=== PATIENT | female | born 1980 | race Caucasian/White ===

== ENCOUNTER 2016-07-02 16:15 | Emergency (ER) | payer OTHER ==
[~2016-07-02] VITALS: Ht 154.9 cm; Wt 49.8 kg
[~2016-07-02 16:15] MED LIST: ADVIL200 M1 PO; ANAPROX DS550 M1 PO; AUGMENTIN875 MG PO; AZITHROMYCIN500 M1 PO; BACTRIM,SEPT1 TABLET PO; CEFTIN500 MG PO; DUONEB 2.5-0.5 M3 ML IH; EXCEDRIN EXT1 TABLET PO; EXCEDRIN EXTRA1 EACH PO; HYDROCODON-ACE1 EAC7 PO; INDOCIN25 MG PO; KEFLEX500 MG PO; LIDOCAINE20 MG/1 M5 PO; LORTAB 5-325 M1 EACH PO; METHADONE10 MG PO; METHADOSE10 MG/1 ML PO; MOTRIN IB200 MG PO; MOTRIN600 MG PO; NICOTINE PATCH1 EAC2 TD; NOHOMEMEDS; ORTHO TRI-CYCL1 EACH PO; PANTOPRAZOLE SO40 MG PO; PEN-VEE K,VEET500 MG PO; PERCOCET 5/31 TABLET PO; ROBITUSSIN AC,T10 ML PO; ULTRACET1 TABLET PO; ZITHROMAX Z-PA250 MG PO
[2016-07-02] MEDS ORDERED: VENTOLIN HFA18 GM IH (16:47)
[2016-07-02] MEDS ORDERED: PROVENTIL,2.5 MG/3 M IH (16:47)
[2016-07-02] MEDS ORDERED: PREDNISONE20 MG PO (16:47)
[2016-07-02] MEDS ORDERED: ZITHROMAX Z-PA250 MG PO (16:47)
[2016-07-02 17:34] VITALS: BP 101/63
== END 2016-07-02 17:35 | disposition home or self-care (01) ==
LOC: EME 16:15
DX: J32.9 Chronic sinusitis, unspecified (principal); J20.9 Acute bronchitis, unspecified; J45.909 Unspecified asthma, uncomplicated; F17.200 Nicotine dependence, unspecified, uncomplicated
CPT/HCPCS: 99281; 99284; J7512

== ENCOUNTER 2017-10-12 19:42 | Emergency (ER) | payer OTHER ==
[~2017-10-12] VITALS: Ht 157.5 cm; Wt 56.8 kg
[~2017-10-12 19:42] MED LIST changes: +PREDNISONE20 MG PO; +PROVENTIL,2.5 MG/3 M IH; +VENTOLIN HFA18 GM IH
[2017-10-12 20:27] LABS: MCH 27.1 PG (29.0-34.0); MCHC 34.1 G/DL (30.0-36.0); MCV 79.3 FL (83-99); PLATELET COUNT 184 K/uL (156-360); RBC DIS.WIDTH-CV 15.9 % (11.8-14.6); RBC DIS.WIDTH-SD 45.7 % (39-53); RED BLOOD COUNT 5.17 M/uL (3.80-5.20); WHITE BLOOD COUNT 15.6 K/uL (4.1-10.2)
[2017-10-12 20:32] LABS: ALBUMIN 3.8 g/dL (3.2-4.8); CHLORIDE 106 mEq/L (99-109); POTASSIUM 4.8 mEq/L (3.7-5.4); SODIUM 134 mEq/L (136-147)
[2017-10-12 20:35] LABS: GLUCOSE 172 mg/dL (70-99); TOTAL PROTEIN 7.9 g/dL (6.4-8.3)
[2017-10-12 20:37] LABS: TOTAL BILIRUBIN 0.5 mg/dL (0.0-1.0)
[2017-10-12 20:38] LABS: ALKALINE PHOSPHATASE 115 IU/L (3-129); CREATININE 0.9 mg/dL (0.6-1.3); GFR ESTIMATE (CALCULATED) > 59 mL/min/
[2017-10-12 20:39] LABS: UREA NITROGEN (BUN) 12 mg/dL (9-23)
[2017-10-12 20:40] LABS: AST (GOT) 40 IU/L (2-34)
[2017-10-12 20:41] LABS: ALT (GPT) 34 IU/L (3-49)
[2017-10-12 20:48] LABS: QUANTITATIVE HCG < 4.0 MIU/ML
[2017-10-12 22:30] LABS: APPEARANCE CLEAR ((CLEAR)); BILIRUBIN NEGATIVE; BLOOD NEGATIVE; COLOR YELLOW ((YELLOW)); GLUCOSE (STRIP) NEGATIVE; KETONES NEGATIVE; LEUKOCYTES NEGATIVE; NITRITE NEGATIVE; PROTEIN (STRIP) NEGATIVE; SPECIFIC GRAVITY 1.019 (1.000-1.030); UCUL ADDED? NO; UROBILINOGEN 0.2 MG/DL (0.2-1.0)
[2017-10-12] MEDS ORDERED: MOTRIN600 MG PO (22:41)
[2017-10-12] MEDS ORDERED: MEDROL DOSEPAK4 MG PO (22:41)
[2017-10-12] MEDS ORDERED: LIDODERM 5% P1 PATCH TD (22:41)
[2017-10-12] MEDS ORDERED: BACLOFEN10 MG PO (22:41)
[2017-10-12 22:59] VITALS: BP 133/96
== END 2017-10-12 23:00 | disposition home or self-care (01) ==
LOC: EME 19:42
DX: S39.011A Strain of muscle, fascia and tendon of abdomen, initial encounter (principal); M16.11 Unilateral primary osteoarthritis, right hip; Y93.01 Activity, walking, marching and hiking; J45.909 Unspecified asthma, uncomplicated; J43.9 Emphysema, unspecified; Z86.69 Personal history of other diseases of the nervous system and sense organs; F17.200 Nicotine dependence, unspecified, uncomplicated
CPT/HCPCS: 72170; 80053; 81003; 84702; 85027; 99281; 99284; J1885

== ENCOUNTER 2017-10-14 13:56 | Emergency (ER) | payer OTHER ==
[~2017-10-14] VITALS: Ht 157.5 cm; Wt 57.0 kg
[~2017-10-14 13:56] MED LIST changes: +BACLOFEN10 MG PO; +LIDODERM 5% P1 PATCH TD; +MEDROL DOSEPAK4 MG PO
[2017-10-14] MEDS ORDERED: PERCOCET 5/31 TABLET PO (15:11)
[2017-10-14 15:31] VITALS: BP 156/83
== END 2017-10-14 15:35 | disposition home or self-care (01) ==
LOC: EME 13:56
DX: M54.32 Sciatica, left side (principal); Z88.8 Allergy status to other drugs, medicaments and biological substances
CPT/HCPCS: 99281; 99284; J1885

== ENCOUNTER 2017-10-15 15:09 | Inpatient (IN) | payer OTHER ==
[~2017-10-15] VITALS: Ht 157.5 cm; Wt 70.3 kg
[2017-10-15 16:44] LABS: HEMATOCRIT 38.6 % (36.0-46.0); HEMOGLOBIN 13.6 G/DL (11.9-15.5); MCH 27.2 PG (29.0-34.0); MCHC 35.2 G/DL (30.0-36.0); MCV 77.2 FL (83-99); PLATELET COUNT 203 K/uL (156-360); RBC DIS.WIDTH-CV 16.7 % (11.8-14.6); RBC DIS.WIDTH-SD 46.9 % (39-53); WHITE BLOOD COUNT 6.3 K/uL (4.1-10.2)
[2017-10-15 16:52] LABS: APPEARANCE TURBID ((CLEAR)); BILIRUBIN SMALL; BLOOD LARGE; COLOR AMBER ((YELLOW)); GLUCOSE (STRIP) 50; KETONES NEGATIVE; LEUKOCYTES NEGATIVE; NITRITE NEGATIVE; PROTEIN (STRIP) >=500; SPECIFIC GRAVITY 1.026 (1.000-1.030); UROBILINOGEN 0.2 MG/DL (0.2-1.0)
[2017-10-15 16:53] LABS: CHLORIDE 101 mEq/L (99-109); SODIUM 134 mEq/L (136-147)
[2017-10-15 16:57] LABS: GLUCOSE 114 mg/dL (70-99); SERUM ETHYL ALCOHOL < 10 mg/dL
[2017-10-15 16:58] LABS: GFR ESTIMATE (CALCULATED) 19 mL/min/
[2017-10-15 17:00] LABS: UREA NITROGEN (BUN) 40 mg/dL (9-23)
[2017-10-15 17:01] LABS: SALICYLATE < 5.0 MG/DL (15-30)
[2017-10-15 17:02] LABS: ACETAMINOPHEN (TYLENOL) < 10 mcg/mL (10-30)
[2017-10-15 17:04] LABS: AMPHETAMINE PRESUMPTIVE POSITIVE (500 ng/mL); BARBITURATES NEGATIVE (200 ng/mL); BENZODIAZEPINES NEGATIVE (150 ng/mL); BUPRENORPHINE PRESUMPTIVE POSITIVE (10 ng/mL); COCAINE NEGATIVE (150 ng/mL); METHADONE NEGATIVE (200 ng/mL); METHAMPHETAMINE PRESUMPTIVE POSITIVE (500 ng/mL); OPIATES (MORPHINE) NEGATIVE (100 ng/mL); OXYCODONE PRESUMPTIVE POSITIVE (100 ng/mL); PHENCYCLIDINE NEGATIVE (25 ng/mL); PROPOXYPHENE NEGATIVE (300 ng/mL); THC CANNABINOIDS NEGATIVE (50 ng/mL); TRICYCLIC ANTIDEPRESSANTS NEGATIVE (300 ng/mL)
[2017-10-15 17:06] LABS: TROP-I INTERPRETATION NEGATIVE; TROPONIN-I 0.04 ng/mL (0.0-0.30)
[2017-10-15 17:07] LABS: QUANTITATIVE HCG < 4.0 MIU/ML
[2017-10-15 17:39] LABS: RED BLOOD CELLS NONE SEEN /HPF (0-5)
[2017-10-15 17:40] LABS: WHITE BLOOD CELLS RARE /HPF (0-5)
[2017-10-15 17:41] LABS: BACTERIA RARE /HPF; EPITHELIAL CELLS 1+ /HPF; MUCUS NONE SEEN /LPF; UCUL ADDED? NO
[2017-10-15 17:43] LABS: COARSE GRANULAR CASTS RARE /LPF; FINE GRANULAR CASTS RARE /LPF; HYALINE CASTS RARE /LPF
[2017-10-15 17:51] LABS: COMMENTS - BLOOD GASES C+; DEVICE NC; O2 FLOW 1 L/MIN; SITE RB; TOTAL RESP RATE 22 resp/min
[2017-10-15 17:52] LABS: PCO2 25 mm Hg (35-45); PO2 84 mm Hg (80-100); pH 7.33 (7.35-7.45)
[2017-10-15 17:53] LABS: BASE EXCESS -11.1 mEq/L (-3 to +3); BICARBONATE 13.2 mEq/L (22-26); CARBOXY HGB 1.4 % (0-5); METHEMOGLOBIN 1.2 % (0-1.5)
[2017-10-15 17:58] LABS: CREATINE KINASE 1156 IU/L (1-294)
[2017-10-15 21:15] VITALS: BP 122/85
[2017-10-15 22:27] LABS: CARBOXY HGB 1.6 % (0-5); PCO2 45 mm Hg (35-45); PO2 92 mm Hg (80-100)
[2017-10-15 22:28] LABS: BASE EXCESS -15.3 mEq/L (-3 to +3); COMMENTS - BLOOD GASES C+A+; DEVICE VENTILATOR; FI02 40 %; MECHANICAL RATE 16 resp/min; MODE AC; PEEP 5 CM/H20; TIDAL VOLUME 450 ML; TOTAL RESP RATE 16 resp/min
[2017-10-15 22:30] VITALS: BP 122/85
[2017-10-15 22:46] LABS: PTT 38.1 SEC (25-37)
[2017-10-15 22:50] LABS: MAGNESIUM 1.7 mg/dl (1.3-2.7); PHOSPHORUS 5.6 mg/dL (2.5-4.9)
[2017-10-15 23:19] LABS: INTER. NORMALIZED RATIO 1.3
[2017-10-15 23:31] LABS: TRIGLYCERIDES 274 MG/DL (Normal: <150)
[2017-10-15 23:44] LABS: BASE EXCESS -8.1 mEq/L (-3 to +3); BICARBONATE 16.9 mEq/L (22-26); CARBOXY HGB 1.3 % (0-5); PCO2 32 mm Hg (35-45); PO2 103 mm Hg (80-100); pH 7.33 (7.35-7.45)
[2017-10-15 23:45] LABS: COMMENTS - BLOOD GASES C+A+; DEVICE VENTILATOR; FI02 40 %; MECHANICAL RATE 20 resp/min; MODE AC; PEEP 5 CM/H20; TIDAL VOLUME 450 ML; TOTAL RESP RATE 26 resp/min
[2017-10-16] VITALS (8 sets, daily range): BP systolic 94–161; BP diastolic 67–99
[2017-10-16 05:22] LABS: BASE EXCESS -7.3 mEq/L (-3 to +3); METHEMOGLOBIN 1.2 % (0-1.5); PCO2 35 mm Hg (35-45); PO2 102 mm Hg (80-100); pH 7.32 (7.35-7.45)
[2017-10-16 05:23] LABS: COMMENTS - BLOOD GASES C+A+; DEVICE VENTILATOR; FI02 40 %; MECHANICAL RATE 20 resp/min; MODE AC; PEEP 5 CM/H20; TIDAL VOLUME 450 ML; TOTAL RESP RATE 21 resp/min
[2017-10-16 06:11] LABS: HEMATOCRIT 33.4 % (36.0-46.0); MCH 26.2 PG (29.0-34.0); MCHC 33.2 G/DL (30.0-36.0); RBC DIS.WIDTH-SD 48.8 % (39-53); RED BLOOD COUNT 4.23 M/uL (3.80-5.20); WHITE BLOOD COUNT 2.4 K/uL (4.1-10.2)
[2017-10-16 06:18] LABS: HEMOGLOBIN 11.1 G/DL (11.9-15.5)
[2017-10-16 06:44] LABS: CHLORIDE 109 MEQ/L (99-109); CREATININE 3.1 MG/DL (0.6-1.3); GFR ESTIMATE (CALCULATED) 18 mL/min/; GLUCOSE 134 mg/dL (70-99); MAGNESIUM 1.6 mg/dl (1.3-2.7); PHOSPHORUS 4.2 mg/dL (2.5-4.9); POTASSIUM 3.7 MEQ/L (3.7-5.4); SODIUM 139 MEQ/L (136-147); UREA NITROGEN (BUN) 41 mg/dL (9-23)
[2017-10-16 07:40] LABS: PLAT.SUFFICIENCY DECREASED
[2017-10-16 07:42] LABS: PLATELET COUNT 106 K/uL (156-360)
[2017-10-16 07:47] LABS: CREATINE KINASE 1574 IU/L (1-294)
[2017-10-17] VITALS (11 sets, daily range): BP systolic 108–152; BP diastolic 69–99
[2017-10-17 06:20] LABS: CREATINE KINASE 1057 IU/L (1-294)
[2017-10-17 07:31] LABS: ALBUMIN 1.6 G/DL (3.2-4.8); ALKALINE PHOSPHATASE 63 IU/L (3-129); ALT (GPT) 36 IU/L (3-49); AST (GOT) 69 IU/L (2-34); CHLORIDE 104 MEQ/L (99-109); CREATININE 3.6 MG/DL (0.6-1.3); GFR ESTIMATE (CALCULATED) 15 mL/min/; GLUCOSE 101 mg/dL (70-99); MAGNESIUM 1.5 mg/dl (1.3-2.7); POTASSIUM 3.7 MEQ/L (3.7-5.4); SODIUM 139 MEQ/L (136-147); TOTAL BILIRUBIN 0.8 MG/DL (0.0-1.0); UREA NITROGEN (BUN) 50 mg/dL (9-23)
[2017-10-17 11:49] LABS: HEMATOCRIT 28.7 % (36.0-46.0); HEMOGLOBIN 9.8 G/DL (11.9-15.5); MCH 26.7 PG (29.0-34.0); MCHC 34.1 G/DL (30.0-36.0); MCV 78.2 FL (83-99); RBC DIS.WIDTH-CV 17.2 % (11.8-14.6); RBC DIS.WIDTH-SD 49.4 % (39-53); RED BLOOD COUNT 3.67 M/uL (3.80-5.20); WHITE BLOOD COUNT 6.2 K/uL (4.1-10.2)
[2017-10-17 12:21] LABS: ABS NEUTROPHIL COUNT 5.7; ANISOCYTOSIS NONE SEEN; BAND NEUTROPHILS 16.4 % (0-8.0); BURR CELLS 1+; EOSINOPHIL ABS CT 0; LYMPHOCYTES 6.9 % (15.0-45.0); MONOCYTES 0.8 % (0-9.0); NUCLEATED RBC'S 0.9; PLAT.SUFFICIENCY DECREASED; PLATELET COUNT 54 K/uL (156-360); POIKILOCYTOSIS 1+; SEG.NEUTROPHILS 75.9 % (46.0-76.0); SMUDGE CELLS 4.3
[2017-10-17 21:50] LABS: DEVICE VENT; FI02 60 %; MECHANICAL RATE 12 resp/min; MODE ACVC+; PCO2 35 mm Hg (35-45); PEEP 5 CM/H20; PO2 65 mm Hg (80-100); SITE ALINE; TIDAL VOLUME 450 ML; TOTAL RESP RATE 28 resp/min; pH 7.48 (7.35-7.45)
[2017-10-17 21:51] LABS: BASE EXCESS 2.7 mEq/L (-3 to +3); BICARBONATE 26.1 mEq/L (22-26); CARBOXY HGB 0.9 % (0-5); METHEMOGLOBIN 1.1 % (0-1.5)
[2017-10-18] VITALS (21 sets, daily range): BP systolic 112–146; BP diastolic 63–98
[2017-10-18 06:41] LABS: CREATINE KINASE 322 IU/L (1-294); MAGNESIUM 1.6 mg/dl (1.3-2.7)
[2017-10-18 06:45] LABS: PHOSPHORUS 2.2 mg/dL (2.5-4.9)
[2017-10-18 07:32] LABS: HEMOGLOBIN 9.5 G/DL (11.9-15.5); MCH 26.5 PG (29.0-34.0); MCHC 33.9 G/DL (30.0-36.0); MCV 78.2 FL (83-99); RBC DIS.WIDTH-CV 17.2 % (11.8-14.6); RBC DIS.WIDTH-SD 49.4 % (39-53); RED BLOOD COUNT 3.58 M/uL (3.80-5.20)
[2017-10-18 07:47] LABS: ABS NEUTROPHIL COUNT 6.7; ANISOCYTOSIS NONE SEEN; ATYPICAL LYMPHOCYTE 0.9 %; BAND NEUTROPHILS 1.8 % (0-8.0); EOSINOPHIL ABS CT 0.1; EOSINOPHILS 0.9 % (0-5.0); LYMPHOCYTES 10.6 % (15.0-45.0); MONOCYTES 3.5 % (0-9.0); PLAT.SUFFICIENCY VERY DECREASED; SEG.NEUTROPHILS 82.3 % (46.0-76.0)
[2017-10-18 07:48] LABS: PLATELET COUNT 33 K/uL (156-360)
[2017-10-18 09:02] LABS: CHLORIDE 99 MEQ/L (99-109); CREATININE 3.6 MG/DL (0.6-1.3); GFR ESTIMATE (CALCULATED) 15 mL/min/; GLUCOSE 91 mg/dL (70-99); POTASSIUM 3.2 MEQ/L (3.7-5.4); SODIUM 142 MEQ/L (136-147); UREA NITROGEN (BUN) 54 mg/dL (9-23)
[2017-10-18 19:56] LABS: ALBUMIN 1.7 g/dL (3.2-4.8)
[2017-10-18 20:02] LABS: ALKALINE PHOSPHATASE 88 IU/L (3-129)
[2017-10-18 20:04] LABS: AST (GOT) 47 IU/L (2-34); DIRECT BILIRUBIN 0.8 mg/dL (0.0-0.3)
[2017-10-18 20:05] LABS: ALT (GPT) 37 IU/L (3-49); LIPASE 9 U/L (1.0-51.0)
[2017-10-18 20:06] LABS: TOTAL PROTEIN 4.4 g/dL (6.4-8.3)
[2017-10-19] VITALS (25 sets, daily range): BP systolic 104–140; BP diastolic 56–85
[2017-10-19 06:08] LABS: CHLORIDE 101 MEQ/L (99-109); CREATININE 3.9 MG/DL (0.6-1.3); GFR ESTIMATE (CALCULATED) 14 mL/min/; GLUCOSE 104 mg/dL (70-99); POTASSIUM 3.2 MEQ/L (3.7-5.4); SODIUM 143 MEQ/L (136-147); UREA NITROGEN (BUN) 66 mg/dL (9-23)
[2017-10-19 06:15] LABS: MAGNESIUM 2.8 mg/dl (1.3-2.7); PHOSPHORUS 3.8 mg/dL (2.5-4.9)
[2017-10-19 11:52] LABS: INTER. NORMALIZED RATIO 1.2
[2017-10-19 11:55] LABS: PTT 29.6 SEC (25-37)
[2017-10-19 12:23] LABS: HIGH-SENS C-REACTIVE PROTEIN > 8.00 MG/DL (0.02-0.20)
[2017-10-19 12:28] LABS: D-DIMER LATEX POSITIVE
[2017-10-19 12:43] LABS: FIBRINOGEN 707 mg/dL (150-450)
[2017-10-19 12:46] LABS: SCHISTOCYTES NONE SEEN
[2017-10-19 17:46] LABS: DEVICE VENT; FI02 100 %; MECHANICAL RATE 12 resp/min; MODE AC; PCO2 46 mm Hg (35-45); PEEP 8 CM/H20; SITE ALINE; TIDAL VOLUME 450 ML; TOTAL RESP RATE 21 resp/min; pH 7.45 (7.35-7.45)
[2017-10-19 17:47] LABS: BASE EXCESS 7.2 mEq/L (-3 to +3); CARBOXY HGB 1.3 % (0-5); COMMENTS - BLOOD GASES C+; METHEMOGLOBIN 0.8 % (0-1.5); O2 SATURATION (CALCULATED) 87.3 % (95-99); PO2 47 mm Hg (80-100)
[2017-10-20] VITALS (18 sets, daily range): BP systolic 98–133; BP diastolic 58–87
[2017-10-20 05:47] LABS: HEMATOCRIT 23.6 % (36.0-46.0); HEMOGLOBIN 7.8 G/DL (11.9-15.5); MCHC 33.1 G/DL (30.0-36.0); MCV 78.7 FL (83-99); RBC DIS.WIDTH-CV 17.2 % (11.8-14.6); RBC DIS.WIDTH-SD 50.2 % (39-53); WHITE BLOOD COUNT 8.8 K/uL (4.1-10.2)
[2017-10-20 06:08] LABS: MAGNESIUM 2.6 mg/dl (1.3-2.7); PHOSPHORUS 4.1 mg/dL (2.5-4.9)
[2017-10-20 06:14] LABS: ALBUMIN 3.4 G/DL (3.2-4.8); ALKALINE PHOSPHATASE 61 IU/L (3-129); ALT (GPT) 17 IU/L (3-49); CHLORIDE 101 MEQ/L (99-109); CREATININE 3.9 MG/DL (0.6-1.3); GFR ESTIMATE (CALCULATED) 14 mL/min/; GLUCOSE 127 mg/dL (70-99); POTASSIUM 3.4 MEQ/L (3.7-5.4); SODIUM 142 MEQ/L (136-147); UREA NITROGEN (BUN) 81 mg/dL (9-23)
[2017-10-20 06:15] LABS: AST (GOT) 23 IU/L (2-34); TOTAL BILIRUBIN 1.4 MG/DL (0.0-1.0); TOTAL PROTEIN 5.2 G/DL (6.4-8.3)
[2017-10-20 06:32] LABS: ABS NEUTROPHIL COUNT 7.7; BAND NEUTROPHILS 7.9 % (0-8.0); EOSINOPHIL ABS CT 0; IMM.PLATELET FRACTION 8.9 (1-7); LYMPHOCYTES 7.9 % (15.0-45.0); MONOCYTES 4.4 % (0-9.0); PLAT.SUFFICIENCY DECREASED; PLATELET COUNT 38 K/uL (156-360); SEG.NEUTROPHILS 79.8 % (46.0-76.0)
[2017-10-20 10:37] LABS: TRIGLYCERIDES 218 MG/DL (Normal: <150)
[2017-10-20 21:41] LABS: CREATININE 3.7 MG/DL (0.6-1.3); GFR ESTIMATE (CALCULATED) 15 mL/min/; GLUCOSE 131 mg/dL (70-99); UREA NITROGEN (BUN) 92 mg/dL (9-23)
[2017-10-20 21:42] LABS: CHLORIDE 102 MEQ/L (99-109); POTASSIUM 4.4 MEQ/L (3.7-5.4); SODIUM 142 MEQ/L (136-147)
[2017-10-21] VITALS (27 sets, daily range): BP systolic 69–116; BP diastolic 46–70
[2017-10-21 06:03] LABS: ALBUMIN 2.6 G/DL (3.2-4.8); ALKALINE PHOSPHATASE 75 IU/L (3-129); ALT (GPT) 15 IU/L (3-49); AST (GOT) 22 IU/L (2-34); CHLORIDE 100 MEQ/L (99-109); CREATININE 3.9 MG/DL (0.6-1.3); GFR ESTIMATE (CALCULATED) 14 mL/min/; GLUCOSE 141 mg/dL (70-99); MAGNESIUM 2.4 mg/dl (1.3-2.7); POTASSIUM 4.6 MEQ/L (3.7-5.4); SODIUM 142 MEQ/L (136-147); TOTAL PROTEIN 5.3 G/DL (6.4-8.3); UREA NITROGEN (BUN) 95 mg/dL (9-23)
[2017-10-21 06:04] LABS: PHOSPHORUS 5.6 mg/dL (2.5-4.9); TOTAL BILIRUBIN 0.9 MG/DL (0.0-1.0)
[2017-10-21 06:06] LABS: HEMATOCRIT 23.2 % (36.0-46.0); HEMOGLOBIN 7.7 G/DL (11.9-15.5); MCH 26.5 PG (29.0-34.0); MCHC 33.2 G/DL (30.0-36.0); MCV 79.7 FL (83-99); RBC DIS.WIDTH-CV 17.9 % (11.8-14.6); RBC DIS.WIDTH-SD 52.4 % (39-53); RED BLOOD COUNT 2.91 M/uL (3.80-5.20); WHITE BLOOD COUNT 12.5 K/uL (4.1-10.2)
[2017-10-21 06:12] LABS: ANISOCYTOSIS 1+; BASOPHIL (%) 0.2 % (0-1); EOSINOPHIL (%) 0.1 % (0-5); IMMATURE GRANULOCYTE (%) 1.8 % (0.0-0.7); LYMPHOCYTE (%) 9.7 % (15-42); LYMPHOCYTE COUNT 1.2 K/uL (1.0-2.8); MICROCYTOSIS 1+; MONOCYTE (%) 4.7 % (3-12); MONOCYTE COUNT 0.6 K/uL (0-0.8); NEUTROPHIL (%) 83.5 % (45-76); NEUTROPHIL COUNT 10.5 K/uL (1.8-6.4); PLAT.SUFFICIENCY DECREASED
[2017-10-21 06:21] LABS: PLATELET COUNT 58 K/uL (156-360)
[2017-10-21 07:32] LABS: COMMENTS - BLOOD GASES NAC+; SITE ALINE
[2017-10-21 07:33] LABS: DEVICE 840; FI02 100 %; MECHANICAL RATE 28 resp/min; MODE PCV; PCO2 57 mm Hg (35-45); PEEP 15 CM/H20; PO2 88 mm Hg (80-100); PRESSURE CONTROL VENTILATION 22 CM H20; TOTAL RESP RATE 28 resp/min; pH 7.31 (7.35-7.45)
[2017-10-21 07:34] LABS: O2 SATURATION (CALCULATED) 97.4 % (95-99)
[2017-10-21 07:35] LABS: BASE EXCESS 2 mEq/L (-3 to +3); BICARBONATE 28.7 mEq/L (22-26); CARBOXY HGB 1.2 % (0-5); METHEMOGLOBIN 1.2 % (0-1.5)
[2017-10-21 12:28] LABS: COMMENTS - BLOOD GASES NAC+MD NOTIFIED; DEVICE 840; FI02 100 %; MODE BILEVEL; SITE ALINE
[2017-10-21 12:29] LABS: CONTINUOUS POS AIRWAY PRESSURE 10 cm H2O; INSPIRATION TIME 2.5 seconds; INSPIRATORY/EXPIRATORY RATIO 2.5:1 RATIO; MECHANICAL RATE 15 resp/min; PCO2 63 mm Hg (35-45); PEEP 37 CM/H20; PO2 101 mm Hg (80-100); TOTAL RESP RATE 15 resp/min; pH 7.26 (7.35-7.45)
[2017-10-21 12:30] LABS: BASE EXCESS 0.9 mEq/L (-3 to +3); BICARBONATE 28.3 mEq/L (22-26); CARBOXY HGB 0.8 % (0-5); METHEMOGLOBIN 1 % (0-1.5)
[2017-10-21 12:31] LABS: INTER. NORMALIZED RATIO 1.3
[2017-10-21 12:34] LABS: PTT 26.6 SEC (25-37)
[2017-10-21 12:59] LABS: ALBUMIN 2.6 G/DL (3.2-4.8); CHLORIDE 97 MEQ/L (99-109); CREATININE 3.9 MG/DL (0.6-1.3); GFR ESTIMATE (CALCULATED) 14 mL/min/; GLUCOSE 128 mg/dL (70-99); PHOSPHORUS 6.3 mg/dL (2.5-4.9); POTASSIUM 4.5 MEQ/L (3.7-5.4); SODIUM 139 MEQ/L (136-147); UREA NITROGEN (BUN) 99 mg/dL (9-23)
[2017-10-21 14:32] LABS: SITE ALINE
[2017-10-21 14:33] LABS: COMMENTS - BLOOD GASES NAC+DR NOTIFIED; DEVICE 840; FI02 100 %; INSPIRATION TIME 1 seconds; MECHANICAL RATE 30 resp/min; MODE AC; PCO2 51 mm Hg (35-45); PEEP 20 CM/H20; PO2 79 mm Hg (80-100); TIDAL VOLUME 360 ML; TOTAL RESP RATE 30 resp/min; pH 7.11 (7.35-7.45)
[2017-10-21 14:34] LABS: BASE EXCESS -12.6 mEq/L (-3 to +3); BICARBONATE 16.2 mEq/L (22-26); CARBOXY HGB 1.1 % (0-5); METHEMOGLOBIN 1.1 % (0-1.5)
[2017-10-21 14:43] LABS: Heparin Induced Plt Ab Negative (Negative)
[2017-10-21 15:41] LABS: SITE ALINE
[2017-10-21 15:42] LABS: DEVICE AMBU; FI02 10 %; pH 7.48 (7.35-7.45)
[2017-10-21 15:46] LABS: PCO2 94 mm Hg (35-45); PO2 35 mm Hg (80-100)
[2017-10-21 15:47] LABS: BICARBONATE 70 mEq/L (22-26); CARBOXY HGB 1.3 % (0-5); METHEMOGLOBIN 0.8 % (0-1.5); O2 SATURATION (CALCULATED) 70.3 % (95-99)
[2017-10-21 15:48] LABS: BASE EXCESS 42.3 mEq/L (-3 to +3)
[2017-10-21 16:06] LABS: UFH SRA Result Negative (Negative)
[2017-10-21 16:13] LABS: INTER. NORMALIZED RATIO 1.5
[2017-10-21 16:15] LABS: ALBUMIN 2.7 g/dL (3.2-4.8); CHLORIDE 98 mEq/L (99-109); HEMATOCRIT 21.3 % (36.0-46.0); HEMOGLOBIN 6.6 G/DL (11.9-15.5); MCH 26.9 PG (29.0-34.0); MCV 86.9 FL (83-99); NRBC (%) 1.2 /100 WBC (0-0); RBC DIS.WIDTH-CV 18.9 % (11.8-14.6); RBC DIS.WIDTH-SD 59.6 % (39-53); RED BLOOD COUNT 2.45 M/uL (3.80-5.20); WHITE BLOOD COUNT 23.4 K/uL (4.1-10.2)
[2017-10-21 16:16] LABS: PTT 42.3 SEC (25-37)
[2017-10-21 16:20] LABS: TOTAL BILIRUBIN 1.2 mg/dL (0.0-1.0)
[2017-10-21 16:21] LABS: CREATININE 4.5 mg/dL (0.6-1.3); GFR ESTIMATE (CALCULATED) 12 mL/min/
[2017-10-21 16:24] LABS: ALT (GPT) 51 IU/L (3-49); CREATINE KINASE 52 IU/L (1-294); TOTAL CK 52 IU/L (1-294)
[2017-10-21 16:26] LABS: GLUCOSE 9 mg/dL (70-99); SODIUM 147 mEq/L (136-147)
[2017-10-21 16:27] LABS: ALKALINE PHOSPHATASE 122 IU/L (3-129); POTASSIUM 7.4 mEq/L (3.7-5.4); TOTAL PROTEIN 5.5 g/dL (6.4-8.3)
[2017-10-21 16:29] LABS: AST (GOT) 159 IU/L (2-34); UREA NITROGEN (BUN) 105 mg/dL (9-23)
[2017-10-21 16:30] LABS: SITE ALINE
[2017-10-21 16:30] LABS: TROP-I INTERPRETATION NEGATIVE; TROPONIN-I 0.17 ng/mL (0.0-0.30)
[2017-10-21 16:31] LABS: CARBOXY HGB 1.1 % (0-5); COMMENTS - BLOOD GASES C+ DR IS AWARE; DEVICE VENT; FI02 100 %; MECHANICAL RATE 34 resp/min; METHEMOGLOBIN 0.6 % (0-1.5); MODE ACVC+; PCO2 46 mm Hg (35-45); PEEP 20 CM/H20; PO2 297 mm Hg (80-100); TIDAL VOLUME 450 ML; TOTAL RESP RATE 34 resp/min; pH 7.09 (7.35-7.45)
[2017-10-21 16:31] LABS: CK-MB 0.9 ng/mL (0.0-4.9); CKMB RELATIVE INDEX 1.7 (0.0-3.9)
[2017-10-21 16:32] LABS: BASE EXCESS -14.8 mEq/L (-3 to +3)
[2017-10-21 16:52] LABS: ABS NEUTROPHIL COUNT 16.1; ANISOCYTOSIS 1+; BAND NEUTROPHILS 2.2 % (0-8.0); BASOPHILS 0.9 %; EOSINOPHIL ABS CT 0; HEMATOLOGY COMMENT 1 SN; LYMPHOCYTES 26.3 % (15.0-45.0); METAMYELOCYTES 1.3 %; MONOCYTES 2.2 % (0-9.0); MYELOCYTES 0.4 %; NUCLEATED RBC'S 3.1; PLAT.SUFFICIENCY ADEQUATE; POIKILOCYTOSIS 1+; SEG.NEUTROPHILS 66.7 % (46.0-76.0); SMUDGE CELLS 10.1
[2017-10-21 16:56] LABS: PLATELET COUNT 168 K/uL (156-360)
[2017-10-21 18:23] LABS: MCH 26.9 PG (29.0-34.0); MCHC 31.8 G/DL (30.0-36.0); MCV 84.6 FL (83-99); NRBC (%) 0.7 /100 WBC (0-0); PLATELET COUNT 137 K/uL (156-360); RBC DIS.WIDTH-CV 18.7 % (11.8-14.6); RBC DIS.WIDTH-SD 57.8 % (39-53); WHITE BLOOD COUNT 19.7 K/uL (4.1-10.2)
[2017-10-21 18:33] LABS: ALBUMIN 2.4 g/dL (3.2-4.8)
[2017-10-21 18:34] LABS: CHLORIDE 101 mEq/L (99-109); SODIUM 149 mEq/L (136-147)
[2017-10-21 18:35] LABS: MAGNESIUM 2.4 mg/dL (1.3-2.7)
[2017-10-21 18:38] LABS: GLUCOSE 56 mg/dL (70-99); POTASSIUM 4.8 mEq/L (3.7-5.4)
[2017-10-21 18:39] LABS: PHOSPHORUS 10.1 mg/dL (2.5-4.9)
[2017-10-21 18:40] LABS: CREATININE 4.2 mg/dL (0.6-1.3); GFR ESTIMATE (CALCULATED) 13 mL/min/
[2017-10-21 18:44] LABS: UREA NITROGEN (BUN) 101 mg/dL (9-23)
[2017-10-21 23:49] LABS: CARBOXY HGB 1.3 % (0-5); METHEMOGLOBIN 1.1 % (0-1.5); O2 SATURATION (CALCULATED) 95.5 % (95-99); PCO2 42 mm Hg (35-45); PO2 83 mm Hg (80-100); pH 7.05 (7.35-7.45)
[2017-10-21 23:50] LABS: BICARBONATE 11.6 mEq/L (22-26); DEVICE VENT; FI02 100 %; MECHANICAL RATE 34 resp/min; MODE ACVC+; PEEP 15 CM/H20; SITE A-LINE; TIDAL VOLUME 450 ML; TOTAL RESP RATE 37 resp/min
== END 2017-10-22 00:24 | DRG 917 ==
LOC: EME → EDBD 15:09 → EME 15:09 → 4WEST 19:55 → EDOF 19:55 → ENRESERV 19:57 → 4WEST 21:17
PROVIDERS: Emergency Medicine; Internal Medicine; Internal Medicine Critical Care Medicine; Internal Medicine Nephrology; Specialist; Surgery
PROC: 0BH18EZ Insertion of Endotracheal Airway into Trachea, Via Natural or Artificial Opening Endoscopic (ICD-10-PCS; principal; 2017-10-15)
PROC: 5A1955Z Respiratory Ventilation, Greater than 96 Consecutive Hours (ICD-10-PCS; principal; 2017-10-15)
PROC: 02HV33Z Insertion of Infusion Device into Superior Vena Cava, Percutaneous Approach (ICD-10-PCS; 2017-10-15)
PROC: 03HY32Z Insertion of Monitoring Device into Upper Artery, Percutaneous Approach (ICD-10-PCS; 2017-10-15)
PROC: 05HP33Z Insertion of Infusion Device into Right External Jugular Vein, Percutaneous Approach (ICD-10-PCS; 2017-10-15)
PROC: 30243R1 Transfusion of Nonautologous Platelets into Central Vein, Percutaneous Approach (ICD-10-PCS; 2017-10-19)
PROC: B54BZZA Ultrasonography of Right Lower Extremity Veins, Guidance (ICD-10-PCS; 2017-10-20)
PROC: 04HY32Z Insertion of Monitoring Device into Lower Artery, Percutaneous Approach (ICD-10-PCS; 2017-10-20)
PROC: 5A1D90Z Performance of Urinary Filtration, Continuous, Greater than 18 hours Per Day (ICD-10-PCS; 2017-10-20)
PROC: 30243K1 Transfusion of Nonautologous Frozen Plasma into Central Vein, Percutaneous Approach (ICD-10-PCS; 2017-10-21)
PROC: 5A12012 Performance of Cardiac Output, Single, Manual (ICD-10-PCS; 2017-10-21)
PROC: B543ZZA Ultrasonography of Right Jugular Veins, Guidance (ICD-10-PCS; 2017-10-21)
PROC: 5A2204Z Restoration of Cardiac Rhythm, Single (ICD-10-PCS; 2017-10-21)
PROC: 02HV33Z Insertion of Infusion Device into Superior Vena Cava, Percutaneous Approach (ICD-10-PCS; 2017-10-21)
PROC: 30243N1 Transfusion of Nonautologous Red Blood Cells into Central Vein, Percutaneous Approach (ICD-10-PCS; 2017-10-21)
PROC: 0W9930Z Drainage of Right Pleural Cavity with Drainage Device, Percutaneous Approach (ICD-10-PCS; 2017-10-22)
PROC: 0W9B30Z Drainage of Left Pleural Cavity with Drainage Device, Percutaneous Approach (ICD-10-PCS; 2017-10-22)
DX: T40.601A Poisoning by unspecified narcotics, accidental (unintentional), initial encounter (principal); T40.4X1A Poisoning by other synthetic narcotics, accidental (unintentional), initial encounter; T40.3X1A Poisoning by methadone, accidental (unintentional), initial encounter; T43.621A Poisoning by amphetamines, accidental (unintentional), initial encounter; G92 Toxic encephalopathy; R40.20 Unspecified coma; A41.02 Sepsis due to Methicillin resistant Staphylococcus aureus; R65.21 Severe sepsis with septic shock; J69.0 Pneumonitis due to inhalation of food and vomit; J15.212 Pneumonia due to Methicillin resistant Staphylococcus aureus; N76.2 Acute vulvitis; J80 Acute respiratory distress syndrome; N17.0 Acute kidney failure with tubular necrosis; I76 Septic arterial embolism; I26.90 Septic pulmonary embolism without acute cor pulmonale; E87.2 Acidosis; M62.82 Rhabdomyolysis; D68.9 Coagulation defect, unspecified; R40.2430 Glasgow coma scale score 3-8, unspecified time; E87.6 Hypokalemia; I49.01 Ventricular fibrillation; I46.9 Cardiac arrest, cause unspecified; D64.9 Anemia, unspecified; D69.6 Thrombocytopenia, unspecified; J93.0 Spontaneous tension pneumothorax; E87.70 Fluid overload, unspecified; E16.2 Hypoglycemia, unspecified; R68.0 Hypothermia, not associated with low environmental temperature; Z51.5 Encounter for palliative care; Z66 Do not resuscitate; J45.909 Unspecified asthma, uncomplicated; B18.2 Chronic viral hepatitis C; F17.210 Nicotine dependence, cigarettes, uncomplicated
CPT/HCPCS: 36600; 70450; 70551; 71045; 71250; 74176; 76705; 76882; 80048; 80048 91; 80053; 80069; 80076; 80202; 81003; 82330; 82550; 82550 91; 82553; 82948; 83605; 83690; 83735; 84100; 84145 90; 84478; 84484; 84702; 84999; 85025; 85025 91; 85027; 85378; 85384; 85610; 85730; 86022 90; 86141; 86850; 86900; 86901; 86920; 87040; 87070; 87077; 87086; 87147; 87186; 87205; 87641; 87801; 93005; 93306; 93308; 93312; 93320; 93325; 94002; 94003; 94640; 94760; 94799; 99281; 99285; C1751; C1788; C1894; G0480; J0171; J0282; J0330; J0610; J0696; J1644; J1940; J2020; J2060; J2250; J2310; J2543; J2704; J3010; J3370; J3475; J3480; J7030; J7042; J7050; J7608; P9016; P9017; P9035; P9037; P9047; S0028